=== PATIENT | male | born 1980 | race American Indian/Alaskan Native ===

== ENCOUNTER 2016-10-19 21:25 | Emergency (ER) | payer SELFPAY ==
--- NOTE | 2016-10-20 01:35 | XRay Report ---
FINAL REPORT PROCEDURE: XR FOOT 3+V LT TECHNIQUE: LEFT foot radiographs, AP, lateral, and oblique views. CPT 49812 HISTORY: foreign body COMPARISON: No prior studies are available for comparison. FINDINGS: Fracture (s) and/or Dislocation(s): None . Alignment: Normal . Joint space(s): Normal . Soft tissues: Normal . Bone mineralization: Normal . Foreign bodies: None . Calcaneal spurring: None . IMPRESSION: Normal Examination .
[2016-10-20] MEDS ORDERED: BOOSTRIX IM ONE (02:36)
--- NOTE | 2016-10-20 02:43 | Emergency Department Report ---
ED Lower Extremity HPI - General Chief Complaint: Extremity Injury, Lower Stated Complaint: LEFT FOOT INJURY Time Seen by Provider: 10/20/16 02:22 Source: patient Mode of arrival: Ambulatory Limitations: No Limitations - History of Present Illness Initial Comments: This is a 35-year-old male nontoxic, well nourished in appearance, no acute signs of distress presents to the ED complaining of left foot pain status post puncture wound. Patient stated yesterday around 1400 patient stepped in a rusted nail. Patient stated he was wearing shoes when this occurred. Patient denies any numbness, tingling, decreased range of motion, pus, drainage, fever, chills, nausea or vomiting. Patient denies any allergy or past medical history. Patient stated does not know his last shot of tetanus. MD Complaint: foot injury -: Gradual, days(s) (1) Injury: Foot: Left Type of Injury: puncture wound Place: street/outdoors Severity: mild Severity scale (0 -10): 6 Improves With: nothing Worsens With: nothing Associated Symptoms: ambulatory. denies: snap/pop sensation, swelling, numbness , tingling, unable to bear weight, able to partially bear weight - Related Data Previous Rx's Medication Instructions Recorded Last Taken Type Ibuprofen [Motrin 600 MG tab] 600 mg PO Q8H PRN #30 tablet 10/20/16 Unknown Rx Levofloxacin [Levaquin TAB] 750 mg PO QDAY #7 tablet 10/20/16 Unknown Rx Allergies Allergy/AdvReac Type Severity Reaction Status Date / Time No Known Allergies Allergy Unverified 10/19/16 21:32 ED Review of Systems ROS: Stated complaint: LEFT FOOT INJURY Other details as noted in HPI Constitutional: denies: chills, fever Eyes: denies: eye pain, eye discharge, vision change ENT: denies: ear pain, throat pain Respiratory: denies: cough, shortness of breath, wheezing Cardiovascular: denies: chest pain, palpitations Endocrine: no symptoms reported Gastrointestinal: denies: abdominal pain, nausea, diarrhea Genitourinary: denies: urgency, dysuria Musculoskeletal: denies: back pain, joint swelling, arthralgia Skin: denies: rash, lesions Neurological: denies: headache, weakness, paresthesias Psychiatric: denies: anxiety, depression Hematological/Lymphatic: denies: easy bleeding, easy bruising ED Past Medical Hx - Past Medical History Previous Medical History?: No - Surgical History Past Surgical History?: No - Social History Smoking Status: Current Every Day Smoker - Medications Home Medications: Home Medications Medication Instructions Recorded Confirmed Last Taken Type Ibuprofen [Motrin 600 MG tab] 600 mg PO Q8H PRN #30 tablet 10/20/16 Unknown Rx Levofloxacin [Levaquin TAB] 750 mg PO QDAY #7 tablet 10/20/16 Unknown Rx ED Physical Exam - General Limitations: No Limitations General appearance: alert, in no apparent distress - Head Head exam: Present: atraumatic, normocephalic, normal inspection - Eye Eye exam: Present: normal appearance, PERRL, EOMI. Absent: scleral icterus, conjunctival injection, nystagmus, periorbital swelling, periorbital tenderness Pupils: Present: normal accommodation - ENT ENT exam: Present: normal exam, normal orophraynx, mucous membranes moist, TM's normal bilaterally, normal external ear exam - Neck Neck exam: Present: normal inspection, full ROM. Absent: tenderness, meningismus, lymphadenopathy, thyromegaly - Respiratory Respiratory exam: Present: normal lung sounds bilaterally. Absent: respiratory distress, wheezes, rales, rhonchi, stridor, chest wall tenderness, accessory muscle use, decreased breath sounds, prolonged expiratory - Cardiovascular Cardiovascular Exam: Present: regular rate, normal rhythm, normal heart sounds. Absent: systolic murmur, diastolic murmur, rubs, gallop - GI/Abdominal GI/Abdominal exam: Present: soft, normal bowel sounds. Absent: distended, tenderness, guarding, rebound, rigid, diminished bowel sounds - Rectal Rectal exam: Present: deferred - Extremities Exam Extremities exam: Present: normal inspection, full ROM, normal capillary refill. Absent: tenderness, pedal edema, joint swelling, calf tenderness - Expanded Lower Extremity Exam Left Hip exam: Present: normal inspection, full ROM Upper Leg exam: Present: normal inspection, full ROM Knee exam: Present: normal inspection, full ROM Lower Leg exam: Present: normal inspection, full ROM Ankle exam: Present: normal inspection, full ROM Foot/Toe exam: Present: normal inspection, full ROM, tenderness, puncture wound. Absent: swelling, abrasion, laceration, ecchymosis, deformity, crepidus , dislocation, erythema, amputation, foreign body, calcaneal tenderness, tenderness at base of 5th metatarsal, nail avulsion, subungual hematoma Neuro vascular tendon exam: Present: no vascular compromise. Absent: pulse deficit, abnormal cap refill, motor deficit, sensory deficit, tendon deficit, extremity cold to touch, pallor, abnormal 2-point discrimination, decreased fine /light touch, foot drop, peroneal nerve deficit, significant pain with passive ROM of distal joint Gait: Positive: observed and normal 1 - Puncture wound - Back Exam Back exam: Present: normal inspection, full ROM. Absent: tenderness, CVA tenderness (R), CVA tenderness (L), muscle spasm, paraspinal tenderness, vertebral tenderness, rash noted - Neurological Exam Neurological exam: Present: alert, oriented X3, CN II-XII intact, normal gait, reflexes normal - Psychiatric Psychiatric exam: Present: normal affect, normal mood - Skin Skin exam: Present: warm, dry, intact, normal color. Absent: rash ED Course Vital Signs 10/19/16 21:33 Temperature 98.5 F Pulse Rate 102 H Respiratory 16 Rate Blood Pressure 111/75 O2 Sat by Pulse 98 Oximetry - Reevaluation(s) Reevaluation #1: 10/20/16 02:47 Patient is speaking full sentences with no signs of distress noted. ED Lower Extremity MDM - Radiology Data Radiology results: report reviewed interpreted by me: Dr. Thomas Normal examination. No fracture or foreign body noted. Critical care attestation.: If time is entered above; I have spent that time in minutes in the direct care of this critically ill patient, excluding procedure time. ED Disposition Clinical Impression: Puncture wound Disposition: DC-01 TO HOME OR SELFCARE Is pt being admited?: No Does the pt Need Aspirin: No Condition: Stable Instructions: Puncture Wound (ED), Levofloxacin (By mouth), Ibuprofen (By mouth ) Additional Instructions: Follow-up with a primary care doctor in 3-5 days or if symptoms worsen or continue return to emergency room as soon as possible. Prescriptions: Ibuprofen [Motrin 600 MG tab] 600 mg PO Q8H PRN #30 tablet PRN Reason: Pain Levofloxacin [Levaquin TAB] 750 mg PO QDAY #7 tablet Referrals: PRIMARY CARE, [Primary Care Provider] - 3-5 Days EMILE BERGER MD [Staff Physician] - 3-5 Days [facility] [Outside] - 3-[address] [facility] [place] [Outside] - 3-5 Days
[2016-10-20 03:55] VITALS: BP 110/70
== END 2016-10-20 03:54 | disposition home or self-care (01) ==
LOC: ED 21:25
DX: S91.332A Puncture wound without foreign body, left foot, initial encounter (principal); F17.200 Nicotine dependence, unspecified, uncomplicated; X58.XXXA Exposure to other specified factors, initial encounter; Y93.9 Activity, unspecified; Y92.9 Unspecified place or not applicable; Y99.9 Unspecified external cause status
CPT/HCPCS: 90471; 90715

== ENCOUNTER 2016-10-27 21:50 | Emergency (ER) | payer SELFPAY ==
[2016-10-27 23:28] LABS: Basophils % (Auto) 0.8 % (0.0-1.8); Eosinophils % (Auto) 2.4 % (0.0-4.3); Hematocrit 42.9 % (35.5-45.6); Hemoglobin 14.4 gm/dl (11.8-15.2); Mean Corpuscular HGB Conc 34 % (32-34); Mean Corpuscular Hemoglobin 33 pg (28-32); Mean Corpuscular Volume 99 fl (84-94); Platelet Count 228 K/mm3 (140-440); Red Blood Count 4.36 M/mm3 (3.65-5.03); Red Cell Distribution Width 13.9 % (13.2-15.2)
[2016-10-27 23:40] LABS: Alanine Aminotransferase 14 units/L (7-56); Albumin 4.4 g/dL (3.9-5); Albumin/Globulin Ratio 1.2 %; Alkaline Phosphatase 75 units/L (35-129); Anion Gap 20 mmol/L; BUN/Creatinine Ratio 16.66; Blood Urea Nitrogen 10 mg/dL (9-20); Calcium 8.5 mg/dL (8.4-10.2); Carbon Dioxide 21 mmol/L (22-30); Chloride 101.5 mmol/L (98-107); Glucose 88 mg/dL (75-100); Lipase 32 units/L (13-60); Potassium 3.8 mmol/L (3.6-5.0); Sodium 139 mmol/L (137-145)
[2016-10-28 02:34] LABS: Bilirubin,Urine NEG (Negative); Blood,Urine NEG (Negative); Ketones,Urine NEG (Negative); Leukocyte Esterase,Urine NEG (Negative); Mucus,Urine FEW /HPF; Nitrite,Urine NEG (Negative); Urobilinogen,Urine < 2.0 mg/dL (<2.0)
[2016-10-28] MEDS ORDERED: NACL 0.9% 1000 ML 1,000 ML IV ONE (03:07)
[2016-10-28] MEDS ORDERED: ZOFRAN IV ONE (03:08)
[2016-10-28] MEDS ORDERED: LIDOCAINE VISCOUS 2% PO ONE (03:08)
[2016-10-28] MEDS ORDERED: ALUM-MAG HYDROX-SIMETH 200-200-20MG/5ML PO ONE (03:08)
[2016-10-28] MEDS ORDERED: MORPHINE IV ONE (03:08)
[2016-10-28] MEDS ORDERED: PROTONIX IV ONE (03:08)
--- NOTE | 2016-10-28 03:12 | Emergency Department Report ---
HPI - General Chief Complaint: Abdominal Pain Time Seen by Provider: 10/28/16 03:07 - HPI HPI: The patient is a 35-year-old male presents for evaluation of abdominal pain. The patient reports abdominal pain for the past one day, upper abdominal in location, 10/10 in severity, constant since onset, burning in quality, exacerbated with eating. The patient denies fever, chills, night sweats, diarrhea, blood in the stool, dark tarry stool, dysuria, hematuria, flank pain, genital discharge, inability to pass flatus. ED Past Medical Hx - Past Medical History Previous Medical History?: No - Surgical History Past Surgical History?: No - Social History Smoking Status: Current Every Day Smoker Substance Use Type: None - Medications Home Medications: Home Medications Medication Instructions Recorded Confirmed Last Taken Type Ibuprofen [Motrin 600 MG tab] 600 mg PO Q8H PRN #30 tablet 10/20/16 Unknown Rx Levofloxacin [Levaquin TAB] 750 mg PO QDAY #7 tablet 10/20/16 Unknown Rx Omeprazole Magnesium [PriLOSEC Otc] 20 mg PO QDAY #14 tablet. 10/28/16 Unknown Rx traMADol [Ultram 50 MG tab] 50 mg PO Q6HR PRN #15 tablet 10/28/16 Unknown Rx ED Review of Systems ROS: Stated complaint: AB PAIN Other details as noted in HPI Constitutional: denies: fever ENT: denies: throat or neck pain Respiratory: denies: cough, shortness of breath Cardiovascular: denies: chest pain Endocrine: denies unexplained weight loss or gain Gastrointestinal: reports abdominal pain, nausea Genitourinary: denies: dysuria Musculoskeletal: denies: leg swelling Skin: denies: rash Neurological: denies: headache Hematological/Lymphatic: denies: easy bleeding or easy bruising Psych: denies sadness or hopelessness Physical Exam - Physical Exam Vital Signs: Vital Signs 10/27/16 10/28/16 22:50 02:05 Temperature 98.3 F 98.3 F Pulse Rate 103 H 87 Respiratory 16 16 Rate Blood Pressure 102/70 Blood Pressure 119/85 [Right] O2 Sat by Pulse 95 98 Oximetry Physical Exam: General: well-nourished, well-developed, no acute distress Head: Normocephalic, atraumatic Eyes: normal sclera ENT: Mucous membranes are pale and dry Neck: No neck stiffness, no cervical adenopathy Respiratory: Breath sounds equal bilaterally, no wheezing, rales, or rhonchi Cardio: S1 and S2 present, no murmurs, rubs, gallops, capillary refill is delayed Abdomen: Normoactive bowel sounds, soft abdomen, left upper quadrant and epigastric tenderness to palpation present, no rigidity, no guarding or rebound tenderness Chest WALL/Back: No tenderness to palpation of the chest wall, no CVA tenderness with percussion Musc: No pitting edema Skin: No rash Neuro: no facial drooping, normal speech Psych: Normal affect ED Course Vital Signs 10/27/16 10/28/16 22:50 02:05 Temperature 98.3 F 98.3 F Pulse Rate 103 H 87 Respiratory 16 16 Rate Blood Pressure 102/70 Blood Pressure 119/85 [Right] O2 Sat by Pulse 95 98 Oximetry ED Medical Decision Making - Lab Data Result diagrams: 10/27/16 22:57 10/27/16 22:57 - Medical Decision Making The patient was seen and examined by myself. The patient is placed on a cardiac rehabilitation specialist and continuous pulse ox. On initial evaluation, the patient was found to be in no distress. Evaluation orders are placed. IV access is established and the patient is given 1 L normal saline fluid bolus and Zofran for nausea, and IV analgesic for pain Lab results were non-concerning including WBC, hemoglobin, hematocrit, electrolytes, renal function, LFTs, lipase, and urinalysis. The patient was reevaluated and reported that their symptoms were markedly improved. The patient is stable for discharge with outpatient follow-up. The patient is given follow-up and return instructions. The patient expressed understanding and agreed with the plan. The patient is discharged in stable condition. Critical care attestation.: If time is entered above; I have spent that time in minutes in the direct care of this critically ill patient, excluding procedure time. ED Disposition Clinical Impression: Acute LUQ pain, Dehydration, mild Disposition: DC-01 TO HOME OR SELFCARE Is pt being admited?: No Does the pt Need Aspirin: No Condition: Stable Instructions: Abdominal Pain (ED), Gastritis (ED), Peptic Ulcer (ED) Referrals: PRIMARY CARE, [Primary Care Provider] - 3-5 Days Time of Disposition: 03:09
[2016-10-28 05:19] VITALS: BP 127/92
== END 2016-10-28 05:18 | disposition home or self-care (01) ==
LOC: ED 21:50
DX: R10.32 Left lower quadrant pain (principal); E86.0 Dehydration; F17.200 Nicotine dependence, unspecified, uncomplicated
CPT/HCPCS: 36415; 80053; 81001; 83690; 85025; 96361; 96374; 96375; 99284; C9113; J2270; J2405; J7030

== ENCOUNTER 2016-11-30 00:16 | Emergency (ER) | payer SELFPAY ==
[2016-11-30 00:51] VITALS: BP 133/96
[2016-11-30 01:25] LABS: Basophils % (Auto) 1.3 % (0.0-1.8); Eosinophils % (Auto) 2.8 % (0.0-4.3); Hemoglobin 14.4 gm/dl (11.8-15.2); Mean Corpuscular HGB Conc 34 % (32-34); Mean Corpuscular Hemoglobin 34 pg (28-32); Mean Corpuscular Volume 99 fl (84-94); Platelet Count 259 K/mm3 (140-440); Red Blood Count 4.26 M/mm3 (3.65-5.03); White Blood Count 6.1 K/mm3 (4.5-11.0)
[2016-11-30 01:40] LABS: Alanine Aminotransferase 12 units/L (7-56); Albumin 4.2 g/dL (3.9-5); Albumin/Globulin Ratio 1.1 %; Alkaline Phosphatase 76 units/L (35-129); Anion Gap 19 mmol/L; BUN/Creatinine Ratio 10; Blood Urea Nitrogen 6 mg/dL (9-20); Carbon Dioxide 24 mmol/L (22-30); Chloride 99.7 mmol/L (98-107); Glucose 84 mg/dL (75-100); Lipase 21 units/L (13-60); Sodium 139 mmol/L (137-145); Total Protein 8.1 g/dL (6.3-8.2)
== END 2016-11-30 00:47 | disposition left against medical advice (07) ==
LOC: ED 00:16
DX: R07.9 Chest pain, unspecified (principal); Z53.21 Procedure and treatment not carried out due to patient leaving prior to being seen by health care provider
CPT/HCPCS: 36415; 80053; 83690; 85025

== ENCOUNTER 2018-12-10 01:36 | Emergency (ER) | payer SELFPAY ==
[2018-12-10] MEDS ORDERED: ONDANSETRON 4 MG ODT TAB ONE (02:00)
--- NOTE | 2018-12-10 02:09 | Emergency Department Report ---
ED Abdominal Pain HPI - General Chief Complaint: Abdominal Pain Stated Complaint: ABD PAIN Time Seen by Provider: 12/10/18 01:46 Source: patient Mode of arrival: Ambulatory Limitations: No Limitations - History of Present Illness Initial Comments: This is a 38-year-old -[place] male who presents to the emergency room with right sided abdominal pain since this morning. Patient reports pain as sharp and nonradiating pain. States he ate Telugu food around 10:00 this morning. Reports nausea without vomiting. Denies diarrhea, urinary frequency, urgency, dysuria, penile discharge, or chest pain. MD Complaint: abdominal pain -: This morning Location: RUQ, RLQ Radiation: none Migration to: no migration Severity scale (0 -10): 6 Quality: sharp Consistency: intermittent Improves With: nothing Context: possible food poisoning Associated Symptoms: nausea. denies: vomiting, diarrhea, fever, chills, constipation, dysuria, hematemesis, hematochezia, melena, hematuria, anorexia, syncope - Related Data Previous Rx's Medication Instructions Recorded Last Taken Type Ibuprofen [Motrin 600 MG tab] 600 mg PO Q8H PRN #30 tablet 10/20/16 Unknown Rx levoFLOXacin [Levaquin TAB] 750 mg PO QDAY #7 tablet 10/20/16 Unknown Rx Omeprazole Magnesium [PriLOSEC Otc] 20 mg PO QDAY #14 tablet. 10/28/16 Unknown Rx traMADol [Ultram 50 MG tab] 50 mg PO Q6HR PRN #15 tablet 10/28/16 Unknown Rx Ondansetron [Zofran Odt] 4 mg PO Q8HR PRN #15 tab.rapdis 12/10/18 Unknown Rx Allergies Allergy/AdvReac Type Severity Reaction Status Date / Time No Known Allergies Allergy Verified 10/27/16 22:50 ED Review of Systems ROS: Stated complaint: ABD PAIN Other details as noted in HPI Constitutional: denies: chills, fever Respiratory: denies: cough, shortness of breath, wheezing Cardiovascular: denies: chest pain, palpitations Gastrointestinal: abdominal pain, nausea. denies: vomiting, diarrhea Genitourinary: denies: urgency, dysuria Musculoskeletal: denies: back pain, joint swelling, arthralgia Skin: denies: rash, lesions Neurological: denies: headache, weakness, paresthesias Psychiatric: denies: anxiety, depression ED Past Medical Hx - Past Medical History Previous Medical History?: No - Surgical History Past Surgical History?: No - Social History Smoking Status: Current Every Day Smoker Substance Use Type: None - Medications Home Medications: Home Medications Medication Instructions Recorded Confirmed Last Taken Type Ibuprofen [Motrin 600 MG tab] 600 mg PO Q8H PRN #30 tablet 10/20/16 Unknown Rx levoFLOXacin [Levaquin TAB] 750 mg PO QDAY #7 tablet 10/20/16 Unknown Rx Omeprazole Magnesium [PriLOSEC Otc] 20 mg PO QDAY #14 tablet.dr 10/28/16 Unknown Rx traMADol [Ultram 50 MG tab] 50 mg PO Q6HR PRN #15 tablet 10/28/16 Unknown Rx Ondansetron [Zofran Odt] 4 mg PO Q8HR PRN #15 tab.rapdis 12/10/18 Unknown Rx ED Physical Exam - General Limitations: No Limitations General appearance: alert, in no apparent distress - Respiratory Respiratory exam: Present: normal lung sounds bilaterally. Absent: respiratory distress - Cardiovascular Cardiovascular Exam: Present: regular rate, normal rhythm. Absent: systolic murmur, diastolic murmur, rubs, gallop - GI/Abdominal GI/Abdominal exam: Present: soft, normal bowel sounds. Absent: distended, guarding, rebound, rigid, organomegaly - Back Exam Back exam: Absent: CVA tenderness (R), CVA tenderness (L), muscle spasm, paraspinal tenderness, vertebral tenderness, rash noted - Neurological Exam Neurological exam: Present: alert, oriented X3, normal gait - Psychiatric Psychiatric exam: Present: normal affect, normal mood - Skin Skin exam: Present: warm, dry, intact, normal color. Absent: rash ED Course Vital Signs 12/10/18 01:39 Temperature 97.8 F Pulse Rate 105 H Respiratory 18 Rate Blood Pressure 144/99 O2 Sat by Pulse 99 Oximetry ED Medical Decision Making - Lab Data Result diagrams: 12/10/18 01:52 12/10/18 01:52 Lab Results 12/10/18 12/10/18 Range/Units 01:52 01:52 WBC 7.1 (4.5-11.0) K/mm3 RBC 4.35 (3.65-5.03) M/mm3 Hgb 14.6 (11.8-15.2) gm/dl Hct 42.4 (35.5-45.6) % MCV 98 H (84-94) fl MCH 34 H (28-32) pg MCHC 34 (32-34) % RDW 13.6 (13.2-15.2) % Plt Count 222 (140-440) K/mm3 Lymph % (Auto) 36.9 H (13.4-35.0) % [place] % (Auto) 13.4 H (0.0-7.3) % Eos % (Auto) 2.5 (0.0-4.3) % Baso % (Auto) 1.1 (0.0-1.8) % Lymph # 2.6 (1.2-5.4) K/mm3 [place] # 1.0 H (0.0-0.8) K/mm3 Eos # 0.2 (0.0-0.4) K/mm3 Baso # 0.1 (0.0-0.1) K/mm3 Seg Neutrophils % 46.1 (40.0-70.0) % Seg Neutrophils # 3.3 (1.8-7.7) K/mm3 Sodium 139 (137-145) mmol/L Potassium 4.2 (3.6-5.0) mmol/L Chloride 99.8 (98-107) mmol/L Carbon Dioxide 24 (22-30) mmol/L Anion Gap 19 mmol/L BUN 6 L (9-20) mg/dL Creatinine 0.7 L (0.8-1.5) mg/dL Estimated GFR > 60 ml/min BUN/Creatinine Ratio 9 % Glucose 81 (75-100) mg/dL Calcium 9.1 (8.4-10.2) mg/dL Total Bilirubin 1.00 (0.1-1.2) mg/dL AST 31 (5-40) units/L ALT 19 (7-56) units/L Alkaline Phosphatase 95 (35-129) units/L Total Protein 8.4 H (6.3-8.2) g/dL Albumin 4.6 (3.9-5) g/dL Albumin/Globulin Ratio 1.2 % Lipase 28 (13-60) units/L - Radiology Data Radiology results: report reviewed CT ABDOMEN AND PELVIS WITH CONTRAST INDICATION / CLINICAL INFORMATION: right sided abdominal pain. TECHNIQUE: Axial CT images were obtained through the abdomen and pelvis after 100 mL Omnipaque [address] scans at this location are performed using CT dose reduction for ALARA by means of automated exposure control. COMPARISON: None available. FINDINGS: LOWER CHEST: Rounded density in the right inferior hilar region with right lower lobe density with cystic areas containing air-fluid levels. LIVER: Fatty infiltration. GALLBLADDER: No significant abnormality. BILE DUCTS: No significant abnormality. PANCREAS: No significant abnormality. SPLEEN: No significant abnormality. ADRENALS: No significant abnormality. RIGHT KIDNEY and URETER: No significant abnormality. LEFT KIDNEY and URETER: No significant abnormality. STOMACH and SMALL BOWEL: Fluid-filled, nondilated small bowel. COLON: No significant abnormality. APPENDIX: No significant abnormality. PERITONEUM: No free fluid. No free air. No fluid collection. LYMPH NODES: No significant adenopathy. AORTA and ARTERIES: No significant abnormality. IVC and VEINS: No significant abnormality. URINARY BLADDER: No significant abnormality. REPRODUCTIVE ORGANS: No significant abnormality. ADDITIONAL FINDINGS: None. SKELETAL SYSTEM: No significant abnormality. IMPRESSION: 1. No inflammatory process or bowel obstruction in the abdomen or pelvis. Normal appendix. 2. Hepatic steatosis. 3. Right lower lobe density with cystic areas containing air-fluid levels. This could represent intralobar pulmonary sequestration. Follow-up dedicated chest CT is recommended. CT CHEST WITH CONTRAST INDICATION / CLINICAL INFORMATION: r/o intralobar pulmonary sequestration. TECHNIQUE: Axial CT images were obtained through the chest after 100 mL Omnipaque [address] scans at this location are performed using CT dose reduction for ALARA by means of automated exposure control. COMPARISON: CT abdomen from same date. FINDINGS: HEART: No significant abnormality. THORACIC AORTA: No significant abnormality. MEDIASTINUM and KIERAN: There is a rounded soft tissue density at the inferior right hilum measuring 3.2 x 3.8 x 3.6 cm. This lesion has significant mass effect on the right lower lobe bronchus. LUNGS: Dilated cystic airspaces with air-fluid levels in the medial right lung base possibly representing intrapulmonary sequestration. Lungs are otherwise clear. PLEURA: No significant pleural effusion. No pneumothorax. ADDITIONAL FINDINGS: None. UPPER ABDOMEN: No acute abnormality. SKELETAL SYSTEM: No significant abnormality. IMPRESSION: 1. Rounded soft tissue density at the inferior right hilum with mass effect on the right lower lobe bronchus. 2. Possible right lower lobe intrapulmonary sequestration. Follow-up pulmonary consultation with possible bronchoscopy may be helpful. - Medical Decision Making This is a 38 y.o. male that presents with vomiting and and abdominal pain since this morning. Patient is stable and was examined by me. Vitals stable. Obtained CMP, CBC, & UA. All unremarkable. Given zofran odt 4 mg po once in ER. CT of abdomen findings of no inflammatory process or bowel obstruction in the abdomen or pelvis. Normal appendix. Hepatic steatosis. Right lower lobe density with cystic areas containing air-fluid levels. This could represent intralobar pulmonary sequestration. Follow-up dedicated chest CT is recommended. Obtained CT of chest with findings of Rounded soft tissue density at the inferior right hilum with mass effect on the right lower lobe bronchus. Possible right lower lobe intrapulmonary sequestration. Follow-up pulmonary consultation with possible bronchoscopy may be helpful. Referral to pulmonology for follow- up. Start zofran for nausea associated with gastroenteritis. Discussed plan with patient and agreed to plan. No further questions noted by the patient. Discharged home in stable condition. Follow up with PCP in 2-3 days. Critical care attestation.: If time is entered above; I have spent that time in minutes in the direct care of this critically ill patient, excluding procedure time. ED Disposition Clinical Impression: Right sided abdominal pain, Gastroenteritis Disposition: - TO HOME OR SELFCARE Is pt being admited?: No Condition: Stable Instructions: Gastroenteritis (ED) Additional Instructions: Follow-up with the backup sawyer regarding solid area lower lobe of right lung. Return to the emergency room a few experience shortness of breath, difficulty breathing with movement, chest pain, or palpitations. Prescriptions: Ondansetron [Zofran Odt] 4 mg PO Q8HR PRN #15 tab.rapdis PRN Reason: Nausea And Vomiting Referrals: FAREED MORROW MD [Staff Physician] - 3-5 Days [facility] [Provider Group] - 3-5 Days [facility] [Outside] - 3-5 Days Forms: Work/School Release Form(ED) Time of Disposition: 05:17
[2018-12-10] MEDS ORDERED: ONDANSETRON 4 MG ODT TAB PO ONE (02:25)
[2018-12-10] MEDS ORDERED: SODIUM CHLORIDE 0.9% 1000 ML 1,000 ML IV ONE (02:25)
[2018-12-10 02:37] LABS: Basophils # (Auto) 0.1 K/mm3 (0.0-0.1); Basophils % (Auto) 1.1 % (0.0-1.8); Eosinophils # (Auto) 0.2 K/mm3 (0.0-0.4); Eosinophils % (Auto) 2.5 % (0.0-4.3); Hematocrit 42.4 % (35.5-45.6); Hemoglobin 14.6 gm/dl (11.8-15.2); Lymphocytes # (Auto) 2.6 K/mm3 (1.2-5.4); Lymphocytes % (Auto) 36.9 % (13.4-35.0); Mean Corpuscular HGB Conc 34 % (32-34); Mean Corpuscular Volume 98 fl (84-94); Monocytes % (Auto) 13.4 % (0.0-7.3); Platelet Count 222 K/mm3 (140-440); Red Blood Count 4.35 M/mm3 (3.65-5.03); Red Cell Distribution Width 13.6 % (13.2-15.2)
[2018-12-10 02:54] LABS: Alanine Aminotransferase 19 units/L (7-56); Albumin 4.6 g/dL (3.9-5); BUN/Creatinine Ratio 9; Blood Urea Nitrogen 6 mg/dL (9-20); Calcium 9.1 mg/dL (8.4-10.2); Hemolysis Index 11
--- NOTE | 2018-12-10 03:36 | Cat Scan Report ---
CT ABDOMEN AND PELVIS WITH CONTRAST INDICATION / CLINICAL INFORMATION: right sided abdominal pain. TECHNIQUE: Axial CT images were obtained through the abdomen and pelvis after 100 mL Omnipaque [address] scans at this location are performed using CT dose reduction for ALARA by means of automated exposure control. COMPARISON: None available. FINDINGS: LOWER CHEST: Rounded density in the right inferior hilar region with right lower lobe density with cy stic areas containing air-fluid levels. LIVER: Fatty infiltration. GALLBLADDER: No significant abnormality. BILE DUCTS: No significant abnormality. PANCREAS: No significant abnormality. SPLEEN: No significant abnormality. ADRENALS: No significant abnormality. RIGHT KIDNEY and URETER: No significant abnormality. LEFT KIDNEY and URETER: No significant abnormality. STOMACH and SMALL BOWEL: Fluid-filled, nondilated small bowel. COLON: No significant abnormality. APPENDIX: No significant abnormality. PERITONEUM: No free fluid. No free air. No fluid collection. LYMPH NODES: No significant adenopathy. AORTA and ARTERIES: No significant abnormality. IVC and VEINS: No significant abnormality. URINARY BLADDER: No significant abnormality. REPRODUCTIVE ORGANS: No significant abnormality. ADDITIONAL FINDINGS: None. SKELETAL SYSTEM: No significant abnormality. IMPRESSION: 1. No inflammatory process or bowel obstruction in the abdomen or pelvis. Normal appendix. 2. Hepatic steatosis. 3. Right lower lobe density with cystic areas containing air-fluid levels. This could represent intra lobar pulmonary sequestration. Follow-up dedicated chest CT is recommended. Signer Name: Cathleen Kumar MD Signed: 12/10/2018 3:32 AM Workstation Name: [id number]
--- NOTE | 2018-12-10 04:53 | Cat Scan Report ---
CT CHEST WITH CONTRAST INDICATION / CLINICAL INFORMATION: r/o intralobar pulmonary sequestration. TECHNIQUE: Axial CT images were obtained through the chest after 100 mL Omnipaque [address] scans at this location are performed using CT dose reduction for ALARA by means of automated exposure contr ol. COMPARISON: CT abdomen from same date. FINDINGS: HEART: No significant abnormality. THORACIC AORTA: No significant abnormality. MEDIASTINUM and KIERAN: There is a rounded soft tissue density at the inferior right hilum measuring 3. 2 x 3.8 x 3.6 cm. This lesion has significant mass effect on the right lower lobe bronchus. LUNGS: Dilated cystic airspaces with air-fluid levels in the medial right lung base possibly represen ting intrapulmonary sequestration. Lungs are otherwise clear. PLEURA: No significant pleural effusion. No pneumothorax. ADDITIONAL FINDINGS: None. UPPER ABDOMEN: No acute abnormality. SKELETAL SYSTEM: No significant abnormality. IMPRESSION: 1. Rounded soft tissue density at the inferior right hilum with mass effect on the right lower lobe b ronchus. 2. Possible right lower lobe intrapulmonary sequestration. Follow-up pulmonary consultation with poss ible bronchoscopy may be helpful. Signer Name: Cathleen Kumar MD Signed: 12/10/2018 4:49 AM Workstation Name: [id number]
[2018-12-10 05:36] VITALS: BP 141/99
== END 2018-12-10 05:34 | disposition home or self-care (01) ==
LOC: ED 01:36
DX: K52.9 Noninfective gastroenteritis and colitis, unspecified (principal); F17.200 Nicotine dependence, unspecified, uncomplicated; Z79.899 Other long term (current) drug therapy
CPT/HCPCS: 36415; 71260; 74177; 80053; 83690; 85025; 96360; 99284; J7030; Q9967; Q0162

== ENCOUNTER 2018-12-11 23:29 | Emergency (ER) | payer SELFPAY ==
[2018-12-11 23:47] VITALS: BP 127/86
[2018-12-12 00:11] LABS: Basophils # (Auto) 0.1 K/mm3 (0.0-0.1); Basophils % (Auto) 0.9 % (0.0-1.8); Eosinophils # (Auto) 0.2 K/mm3 (0.0-0.4); Eosinophils % (Auto) 2.6 % (0.0-4.3); Hematocrit 43.8 % (35.5-45.6); Lymphocytes # (Auto) 2.4 K/mm3 (1.2-5.4); Lymphocytes % (Auto) 29.8 % (13.4-35.0); Mean Corpuscular HGB Conc 34 % (32-34); Mean Corpuscular Volume 98 fl (84-94); Monocytes % (Auto) 12.8 % (0.0-7.3); Platelet Count 230 K/mm3 (140-440); Red Blood Count 4.49 M/mm3 (3.65-5.03); Red Cell Distribution Width 13.2 % (13.2-15.2)
[2018-12-12 00:35] LABS: Alanine Aminotransferase 17 units/L (7-56); Albumin 4.5 g/dL (3.9-5); BUN/Creatinine Ratio 9; Blood Urea Nitrogen 6 mg/dL (9-20); Hemolysis Index 13
== END 2018-12-12 01:30 | disposition left against medical advice (07) ==
LOC: ED 23:29
DX: R10.9 Unspecified abdominal pain (principal); Z53.21 Procedure and treatment not carried out due to patient leaving prior to being seen by health care provider
CPT/HCPCS: 36415; 80053; 83690; 85025

== ENCOUNTER 2020-02-04 07:26 | Emergency (ER) | payer SELFPAY ==
[2020-02-04 08:12] VITALS: BP 141/109
[2020-02-04] MEDS ORDERED: PANTOPRAZOLE 40 MG INJ IV ONE (08:12)
--- NOTE | 2020-02-04 08:14 | Event Note ---
ED Screening Note Date of service: 02/04/20 Time: 08:13 ED Screening Note: Patient complains of sudden onset of epigastric pain and hematemesis Denies prior medical history Denies abdominal surgeries Admits to regular heavy alcohol intake This initial assessment/diagnostic orders/clinical plan/treatment(s) is/are subject to change based on patients health status, clinical progression and re- assessment by fellow clinical providers in the ED. Further treatment and workup at subsequent clinical providers discretion. Patient/guardian urged not to elope from the ED as their condition may be serious if not clinically assessed and managed. Initial orders include: ct labs npo
[2020-02-04 09:41] LABS: Basophils % (Auto) 0.7 % (0.0-1.8); Eosinophils % (Auto) 0.6 % (0.0-4.3); Hematocrit 44.7 % (35.5-45.6); Hemoglobin 15.7 gm/dl (11.8-15.2); Lymphocytes # (Auto) 1.5 K/mm3 (1.2-5.4); Lymphocytes % (Auto) 25.5 % (13.4-35.0); Mean Corpuscular HGB Conc 35 % (32-34); Mean Corpuscular Volume 96 fl (84-94); Monocytes # (Auto) 0.9 K/mm3 (0.0-0.8); Monocytes % (Auto) 14.3 % (0.0-7.3); Platelet Count 179 K/mm3 (140-440); Red Blood Count 4.64 M/mm3 (3.65-5.03); Red Cell Distribution Width 13.1 % (13.2-15.2)
[2020-02-04 09:48] LABS: INR 0.94 (0.87-1.13)
[2020-02-04 09:58] LABS: Alanine Aminotransferase 126 units/L (7-56); Albumin 4.7 g/dL (3.9-5); Blood Urea Nitrogen 5 mg/dL (9-20); Calcium 9.1 mg/dL (8.4-10.2); Hemolysis Index 4
[2020-02-04 09:59] LABS: BUN/Creatinine Ratio 7
== END 2020-02-04 09:00 | disposition left against medical advice (07) ==
LOC: ED 07:26
DX: R10.9 Unspecified abdominal pain (principal); Z53.21 Procedure and treatment not carried out due to patient leaving prior to being seen by health care provider
CPT/HCPCS: 36415; 80053; 83690; 85025; 85610; 85730

== ENCOUNTER 2021-04-21 20:49 | Inpatient (IN) | payer SELFPAY ==
[2021-04-21 22:02] LABS: Basophils # (Auto) 0.1 K/mm3 (0.0-0.1); Basophils % (Auto) 1.2 % (0.0-1.8); Eosinophils # (Auto) 0.1 K/mm3 (0.0-0.4); Eosinophils % (Auto) 1.5 % (0.0-4.3); Hematocrit 42.7 % (35.5-45.6); Hemoglobin 14.5 gm/dl (11.8-15.2); Lymphocytes # (Auto) 2.1 K/mm3 (1.2-5.4); Lymphocytes % (Auto) 24.6 % (13.4-35.0); Mean Corpuscular HGB Conc 34 % (32-34); Mean Corpuscular Volume 99 fl (84-94); Monocytes # (Auto) 0.9 K/mm3 (0.0-0.8); Monocytes % (Auto) 10.8 % (0.0-7.3); Platelet Count 167 K/mm3 (140-440); Red Blood Count 4.33 M/mm3 (3.65-5.03); Red Cell Distribution Width 14.1 % (13.2-15.2)
--- NOTE | 2021-04-21 22:03 | XRay Report ---
CHEST 2 VIEWS INDICATION / CLINICAL INFORMATION: chest pain. COMPARISON: None available. FINDINGS: SUPPORT DEVICES: None. HEART / MEDIASTINUM: No significant abnormality. LUNGS / PLEURA: No significant pulmonary or pleural abnormality. No pneumothorax. ADDITIONAL FINDINGS: No significant additional findings. IMPRESSION: 1. No acute findings. Signer Name: Farhan Diaz DO Signed: 04/21/2021 9:59 PM Workstation Name: [id number]
[2021-04-21 22:18] LABS: Alanine Aminotransferase 56 units/L (7-56); Albumin 3.9 g/dL (3.9-5); Blood Urea Nitrogen 6 mg/dL (9-20); Calcium 8.2 mg/dL (8.4-10.2); Hemolysis Index 84
[2021-04-21 22:23] LABS: BUN/Creatinine Ratio 12
[2021-04-22] MEDS: ONDANSETRON 4 MG/2 ML INJ IV ONE ×2 (01:38→14:28)
[2021-04-22] MEDS: PANTOPRAZOLE 40 MG INJ IV ONE ×2 (01:38→14:28)
[2021-04-22 01:53] LABS: Mucus,Urine FEW /HPF; Sperm,Urine 1+ /HPF (NP)
[2021-04-22 01:56] LABS: Color,Urine Yellow (Yellow)
[2021-04-22 01:57] LABS: Bilirubin,Urine Negative (Negative); Blood,Urine Trace (Negative); Urobilinogen,Urine < 2.0 mg/dL (<2.0)
--- NOTE | 2021-04-22 06:43 | Emergency Department Report ---
ED General Adult HPI - General Chief complaint: Chest Pain Stated complaint: CHEST & ABD PAIN PUI?: No Source: patient Mode of arrival: Ambulatory Limitations: No Limitations - History of Present Illness Initial comments: This 40-year-old male who states he has a history of chronic alcohol usage. Presents to the emergency department for evaluation of epigastric and left upper quadrant abdominal pain. The patient states that yesterday he vomited some blood. The patient stated that he vomits every morning. He denies any significant change in his stool. The patient states he has a history of ulcer disease but denies a history of pancreatitis. At this time he denies any fever chills. - Related Data Previous Rx's Medication Instructions Recorded Last Taken Type Multivitamin Tab [Multiple Vitamin 1 each PO DAILY 30 Days #30 tablet 04/23/21 Unknown Rx TAB (Theragran)] Pantoprazole [Protonix TAB] 40 mg PO QDAC 30 Days #30 tablet 04/23/21 Unknown Rx Allergies Allergy/AdvReac Type Severity Reaction Status Date / Time No Known Allergies Allergy Verified 10/27/16 22:50 ED Review of Systems ROS: Stated complaint: CHEST & ABD PAIN Other details as noted in HPI Comment: All other systems reviewed and negative Constitutional: denies: chills, fever Eyes: denies: eye pain, eye discharge, vision change ENT: denies: ear pain, throat pain Respiratory: denies: cough, shortness of breath, wheezing Cardiovascular: denies: chest pain, palpitations Endocrine: no symptoms reported Gastrointestinal: abdominal pain, nausea, vomiting, diarrhea Genitourinary: denies: urgency, dysuria Musculoskeletal: denies: back pain, joint swelling, arthralgia Skin: denies: rash, lesions Neurological: denies: headache, weakness, paresthesias Psychiatric: denies: anxiety, depression Hematological/Lymphatic: denies: easy bleeding, easy bruising ED Past Medical Hx - Past Medical History Additional medical history: ulcer disease - Social History Smoking Status: Current Every Day Smoker Substance Use Type: Alcohol - Medications Home Medications: Home Medications Medication Instructions Recorded Confirmed Last Taken Type Multivitamin Tab [Multiple Vitamin 1 each PO DAILY 30 Days #30 tablet 04/23/21 Unknown Rx TAB (Theragran)] Pantoprazole [Protonix TAB] 40 mg PO QDAC 30 Days #30 tablet 04/23/21 Unknown Rx ED Physical Exam - General Limitations: No Limitations General appearance: alert - Head Head exam: Present: atraumatic - Eye Eye exam: Present: normal appearance - ENT ENT exam: Present: mucous membranes moist - Neck Neck exam: Present: normal inspection - Respiratory Respiratory exam: Present: normal lung sounds bilaterally. Absent: respiratory distress - Cardiovascular Cardiovascular Exam: Present: regular rate, normal rhythm. Absent: systolic murmur, diastolic murmur, rubs, gallop - GI/Abdominal GI/Abdominal exam: Present: soft, tenderness (Localized to the epigastric and left upper quadrant area. There is no tenderness McBurney's point or the right upper quadrant), normal bowel sounds. Absent: guarding, rebound, mass, bruit - Rectal Rectal exam: Present: normal rectal tone, normal prostate. Absent: black stool, hemorrhoids - exam: Present: normal inspection - Extremities Exam Extremities exam: Present: normal inspection - Neurological Exam Neurological exam: Present: alert, oriented X3 - Psychiatric Psychiatric exam: Present: normal affect, normal mood - Skin Skin exam: Present: warm, dry, intact, normal color. Absent: rash ED Course Vital Signs 04/21/21 04/21/21 04/22/21 21:15 21:29 01:36 Temperature 98.9 F Pulse Rate 120 H Respiratory Rate Blood Pressure 128/95 O2 Sat by Pulse 96 100 Oximetry 04/22/21 04/22/21 04/22/21 09:27 09:29 09:30 Temperature 98.9 F Pulse Rate 138 H 112 H 109 H Respiratory 18 19 Rate Blood Pressure 136/89 136/89 O2 Sat by Pulse 99 96 Oximetry 04/22/21 04/22/21 04/22/21 09:46 10:00 10:16 Temperature Pulse Rate 114 H 107 H 107 H Respiratory 21 20 19 Rate Blood Pressure 138/95 137/96 136/103 O2 Sat by Pulse 97 96 97 Oximetry 04/22/21 04/22/21 04/22/21 10:30 10:40 10:50 Temperature Pulse Rate 113 H 115 H 118 H Respiratory 16 21 23 Rate Blood Pressure 136/90 146/95 146/95 O2 Sat by Pulse 97 95 96 Oximetry ED Medical Decision Making - Lab Data Result diagrams: 04/23/21 05:32 04/23/21 05:32 - Radiology Data Radiology results: report reviewed - Medical Decision Making The patient's labs were reviewed and was noted that he had a normal white count. However his liver function studies were elevated as well as his lipase. The initial consideration was that this patient was suffering from alcoholic gastritis. However in light of the abnormal liver studies with elevation of the lipase was felt that this patient may have gallstones resulting in mild pancreatitis. The hospitalist was consulted for the patient to be potentially admitted Critical care attestation.: If time is entered above; I have spent that time in minutes in the direct care of this critically ill patient, excluding procedure time. ED Disposition Clinical Impression: Abdominal pain Qualifiers: Abdominal location: epigastric Qualified Code(s): R10.13 - Epigastric pain Cholelithiasis Qualifiers: Cholelithiasis location: gallbladder Cholecystitis presence: without cholecystitis Disposition: 09 ADMITTED INPATIENT Is pt being admited?: Yes Condition: Stable
--- NOTE | 2021-04-22 07:56 | Ultrasound Report ---
LIMITED RUQ ABDOMINAL ULTRASOUND INDICATION: Elevated lipase with an elevation of alkaline phos. COMPARISON: CT abdomen/pelvis from 12/10/2018. FINDINGS: Pancreas: Visualized portions show no significant abnormality. Abdominal Aorta: Normal size. IVC: No significant abnormality. Liver: The liver measures 18.2 cm in length. Diffusely echogenic. Normal hepatopedal blood flow in t he main portal vein. Gallbladder: Single layering gallstone measuring 1.2 cm with no gallbladder wall thickening or perich olecystic fluid. Bile ducts: No significant abnormality. Common bile duct measures 5 mm. Right kidney: Rounded hyperechoic structure in the midpole region measuring 2.1 cm in maximal dimensi on with no clear internal blood flow. Free fluid: None. Additional Findings: None. IMPRESSION: 1. Hepatomegaly with diffusely echogenic liver, most commonly seen with steatosis. 2. Cholelithiasis with no inflammatory change. 3. Indeterminate hyperechoic structure in the midpole the right kidney, not seen on the previous exam . One consideration would be an angiomyolipoma or a prominent renal pyramid. Consider follow-up CT ur ogram for further evaluation. Signer Name: James Kumar MD Signed: 04/22/2021 7:52 AM Workstation Name: [id number]
--- NOTE | 2021-04-22 08:38 | History and Physical Report ---
History of Present Illness Date of examination: 04/22/21 Date of admission: 04/22/21 Chief complaint: Abdominal pain epigastric with vomiting blood History of present illness: Patient is a 40-year-old male with history of chronic alcohol use last use last night. Who presents to the ED with complaints of epigastric and left upper quadrant pain which he rates as 10/10 in intensity although not improved with 6/10 in intensity. He reports that he vomited some blood yesterday. He reports recurrent emesis every morning for the past few weeks. While he admits to ut story of ulcer disease he denies any history of pancreatitis. He denied any fever or chills or diarrhea. When asked why he continues to drink alcohol despite multiple counseling to quit alcohol use he says that he is not sure. He is visibly tremulous during my examination. In the ER he was noted to have a mildly elevated transaminases and bilirubin. Hemoglobin remained stable at 14 with no elevated white count. Past History Past Medical History: other (PUD, alcoholism) Past Surgical History: No surgical history Social history: smoking, alcohol abuse, full code Family history: no significant family history Medications and Allergies Allergies Allergy/AdvReac Type Severity Reaction Status Date / Time No Known Allergies Allergy Verified 10/27/16 22:50 Home Medications Medication Instructions Recorded Confirmed Last Taken Type Ibuprofen [Motrin 600 MG tab] 600 mg PO Q8H PRN #30 tablet 10/20/16 Unknown Rx levoFLOXacin [Levaquin TAB] 750 mg PO QDAY #7 tablet 10/20/16 Unknown Rx Omeprazole Magnesium [PriLOSEC Otc] 20 mg PO QDAY #14 tablet. 10/28/16 Unknown Rx traMADoL [Ultram 50 MG tab] 50 mg PO Q6HR PRN #15 tablet 10/28/16 Unknown Rx Ondansetron [Zofran Odt] 4 mg PO Q8HR PRN #15 tab.rapdis 12/10/18 Unknown Rx Review of Systems All systems: negative Constitutional: chills, no weight loss, no weight gain, no fever, no anorexia, no fatigue, no weakness, no malaise, no lethargy Cardiovascular: no chest pain, no orthopnea, no palpitations Respiratory: no cough, no cough with sputum, no excessive sputum, no hemoptysis Gastrointestinal: abdominal pain, nausea, vomiting, hematemesis, no diarrhea, no constipation, no change in bowel habits, no coffee ground emesis, no BRBPR, no melena, no hematochezia, no loss of appetite, no early satiety, no heartburn Musculoskeletal: no neck stiffness, no neck pain, no shooting arm pain, no arm numbness/tingling, no low back pain, no shooting leg pain, no leg numbness/tingling Integumentary: no rash, no pruritis, no redness, no sores, no wounds, no jaundice Neurological: no transient paralysis, no paralysis, no weakness, no parathesias, no numbness, no tingling Psychiatric: anxiety, no memory loss, no change in sleep habits, no sleep disturbances, no insomnia, no hypersomnia, no change in appetite, no change in libido, no suicidal ideation Endocrine: no cold intolerance, no heat intolerance, no polyphagia Exam - Physical Exam Narrative exam: VITAL SIGNS: Reviewed. GENERAL: The patient appears normally developed, ill appearing, tremolus Vital signs as documented. HEAD: No signs of head trauma. EYES: Pupils are equal. Extraocular motions intact. No sclera icterus EARS: Hearing grossly intact. MOUTH: Oropharynx is normal. NECK: No adenopathy, no JVD. CHEST: Chest with clear breath sounds bilaterally. No wheezes, rales, or rhonchi. CARDIAC: Regular rate and rhythm. S1 and S2, without murmurs, gallops, or rubs. VASCULAR: No Edema. Peripheral pulses normal and equal in all extremities. ABDOMEN: Tender, epigastric region, Soft, non distended. No rebound or guarding, and no masses palpated. Bowel Sounds normal. MUSCULOSKELETAL: Good range of motion of all major joints. Extremities without clubbing, cyanosis or edema. NEUROLOGIC EXAM: Alert and oriented x 3 No focal sensory or strength deficits. Speech normal. Follows commands. PSYCHIATRIC: Mood normal. SKIN: detail exam as documented in skin assessment - Constitutional Vitals: Temp Pulse Resp BP Pulse Ox 98.9 F 120 H 128/95 100 04/21/21 21:29 04/21/21 21:15 04/21/21 21:15 04/22/21 01:36 HEART Score - HEART Score Troponin: Troponin T < 0.010 ng/mL (0.00-0.029) 04/22/21 03:41 Results - Labs CBC & Chem 7: 04/21/21 21:45 04/21/21 21:45 Labs: Laboratory Last Values WBC 8.6 K/mm3 (4.5-11.0) 04/21/21 21:45 RBC 4.33 M/mm3 (3.65-5.03) 04/21/21 21:45 Hgb 14.5 gm/dl (11.8-15.2) 04/21/21 21:45 Hct 42.7 % (35.5-45.6) 04/21/21 21:45 MCV 99 fl (84-94) H 04/21/21 21:45 MCH 34 pg (28-32) H 04/21/21 21:45 MCHC 34 % (32-34) 04/21/21 21:45 RDW 14.1 % (13.2-15.2) 04/21/21 21:45 Plt Count 167 K/mm3 (140-440) 04/21/21 21:45 Lymph % (Auto) 24.6 % (13.4-35.0) 04/21/21 21:45 [place] % (Auto) 10.8 % (0.0-7.3) H 04/21/21 21:45 Eos % (Auto) 1.5 % (0.0-4.3) 04/21/21 21:45 Baso % (Auto) 1.2 % (0.0-1.8) 04/21/21 21:45 Lymph # (Auto) 2.1 K/mm3 (1.2-5.4) 04/21/21 21:45 [place] # (Auto) 0.9 K/mm3 (0.0-0.8) H 04/21/21 21:45 Eos # (Auto) 0.1 K/mm3 (0.0-0.4) 04/21/21 21:45 Baso # (Auto) 0.1 K/mm3 (0.0-0.1) 04/21/21 21:45 Seg Neutrophils % 61.9 % (40.0-70.0) 04/21/21 21:45 Seg Neutrophils # 5.3 K/mm3 (1.8-7.7) 04/21/21 21:45 Sodium 130 mmol/L (137-145) L 04/21/21 21:45 Potassium 4.3 mmol/L (3.6-5.0) 04/21/21 21:45 Chloride 91.1 mmol/L (98-107) L 04/21/21 21:45 Carbon Dioxide 20 mmol/L (22-30) L 04/21/21 21:45 Anion Gap 23 mmol/L 04/21/21 21:45 BUN 6 mg/dL (9-20) L 04/21/21 21:45 Creatinine 0.5 mg/dL (0.8-1.3) L 04/21/21 21:45 Estimated GFR > 60 ml/min 04/21/21 21:45 BUN/Creatinine Ratio 12 % 04/21/21 21:45 Glucose 89 mg/dL (75-100) 04/21/21 21:45 Calcium 8.2 mg/dL (8.4-10.2) L 04/21/21 21:45 Total Bilirubin 1.40 mg/dL (0.1-1.2) H 04/21/21 21:45 AST 139 units/L (5-40) H 04/21/21 21:45 ALT 56 units/L (7-56) 04/21/21 21:45 Alkaline Phosphatase 425 units/L (35-129) H 04/21/21 21:45 Troponin T < 0.010 ng/mL (0.00-0.029) 04/22/21 03:41 Total Protein 8.8 g/dL (6.3-8.2) H 04/21/21 21:45 Albumin 3.9 g/dL (3.9-5) 04/21/21 21:45 Albumin/Globulin Ratio 0.8 % 04/21/21 21:45 Lipase 69 units/L (13-60) H 04/22/21 00:25 Urine Color Yellow (Yellow) 04/22/21 01:41 Urine Turbidity Clear (Clear) 04/22/21 01:41 Urine pH 5.0 (5.0-7.0) 04/22/21 01:41 Ur Specific [place] 1.025 (1.003-1.030) 04/22/21 01:41 Urine Protein 30 mg/dl mg/dL (Negative) 04/22/21 01:41 Urine Glucose (UA) Negative mg/dL (Negative) 04/22/21 01:41 Urine Ketones Negative mg/dL (Negative) 04/22/21 01:41 Urine Blood Trace (Negative) 04/22/21 01:41 Urine Nitrite Negative (Negative) 04/22/21 01:41 Ur Reducing Substances Not Reportable 04/22/21 01:41 Urine Bilirubin Negative (Negative) 04/22/21 01:41 Urine Ictotest Not Reportable 04/22/21 01:41 Urine Urobilinogen < 2.0 mg/dL (<2.0) 04/22/21 01:41 Ur Leukocyte Esterase Negative (Negative) 04/22/21 01:41 Urine WBC (Auto) 3.0 /HPF (0.0-6.0) 04/22/21 01:41 Urine RBC (Auto) 2.0 /HPF (0.0-6.0) 04/22/21 01:41 Urine Mucus Few /HPF 04/22/21 01:41 Urine Sperm 1+ /HPF (WEDGER MACHINE) 04/22/21 01:41 Microbiology: Microbiology 04/22/21 Unknown Stool Stool Occult Blood (ALDO) - Final Assessment and Plan Assessment and plan: Patient is a 40-year-old male with history of chronic alcohol use last use last night. Who presents to the ED with complaints of epigastric and left upper quadrant pain which he rates as 10/10 in intensity although not improved with 6/10 in intensity. He reports that he vomited some blood yesterday. He reports recurrent emesis every morning for the past few weeks. He reports that his pain gets better with food. While he admits to history of ulcer disease he denies any history of pancreatitis. He denied any fever or chills or diarrhea. When asked why he continues to drink alcohol despite multiple counseling to quit alcohol use he says that he is not sure. He is visibly tremulous during my examination. In the ER he was noted to have a mildly elevated transaminases and bilirubin. Hemoglobin remained stable at 14 with no elevated white count. Chest x-ray shows no acute pathology Ultrasound of the abdomen: IMPRESSION: 1. Hepatomegaly with diffusely echogenic liver, most commonly seen with steatosis. 2. Cholelithiasis with no inflammatory change. 3. Indeterminate hyperechoic structure in the midpole the right kidney, not seen on the previous exam. One consideration would be an angiomyolipoma or a prominent renal pyramid. Consider follow-up CT urogram for further evaluation. Assessment Abdominal pain likely alcoholic pancreatitis PUD Hepatomegaly Cholelithiasis appears to be chronic as seen in previous imaging studies Indeterminate hypoechoic structure in the midpole of the right kidney patient to follow-up outpatient with patients transporter Alcohol withdrawal symptoms with no evidence of DTs at this time. EtOH abuse Nicotine abuse Plan Admit to [facility] GI consult for evaluation of hematemesis likely PUD in a patient with known history of the same Surgical consult discussed with surgeon Start on CIWA protocol Banana bag Pain control in addition to with stool softeners for prophylaxis SCDs Extensive counseling greater than 15 minutes on need to quit tobacco and alcohol use patient verbalized understanding Monitor electrolytes and replace LFTs in a.m. Plan of care discussed in detail with the patient he verbalized understanding we will keep n.p.o. until patient is seen by GI. Advance Directives: Yes Plan of care discussed with patient/family: Yes
[2021-04-22] MEDS ORDERED: 1: FOLIC ACID 1 MG, MULTIPLE VITAMIN INJ, ADULT 10 ML, THIAMINE 100 MG in SODIUM CHLORID IV SCH (09:00)
[2021-04-22] MEDS ORDERED: ONDANSETRON 4 MG/2 ML INJ IV PRN (09:00)
[2021-04-22] MEDS ORDERED: LORazepam 2 MG/ML VIAL IV PRN (09:00)
[2021-04-22] MEDS ORDERED: ACETAMINOPHEN 325 MG TAB PO PRN (09:00)
[2021-04-22] MEDS ORDERED: HALOPERIDOL LACTATE 5 MG/1 ML INJ IV PRN (09:00)
[2021-04-22] MEDS ORDERED: NALOXONE 0.4 MG/1 ML INJ IV PRN (09:00)
[2021-04-22] MEDS ORDERED: ALBUTEROL 2.5 MG/3 ML NEBU IH PRN (09:00)
--- NOTE | 2021-04-22 09:14 | Consultation ---
History of Present Illness Consult date: 04/22/21 Reason for consult: abdominal pain - History of present illness History of present illness: Patient is a 40-year-old male with history of chronic alcohol use last use last night. Who presents to the ED with complaints of epigastric and left upper quadrant pain which he rates as 10/10 in intensity although not improved with 6/10 in intensity. He reports that he vomited some blood yesterday. He reports recurrent emesis every morning for the past few weeks. While he admits to history of ulcer disease he denies any history of pancreatitis. He does have gallstones, but his current pain is not postprandial, it is improved with meals. He denied any fever or chills or diarrhea. When asked why he continues to drink alcohol despite multiple counseling to quit alcohol use he says that he is not sure. He is visibly tremulous during my examination. In the ER he was noted to have a mildly elevated transaminases and bilirubin. Hemoglobin remained stable at 14 with no elevated white count. Past History Past Medical History: other (PUD, alcoholism) Past Surgical History: No surgical history Social history: smoking, alcohol abuse, full code Family history: no significant family history Medications and Allergies Allergies Allergy/AdvReac Type Severity Reaction Status Date / Time No Known Allergies Allergy Verified 10/27/16 22:50 Home Medications Medication Instructions Recorded Confirmed Last Taken Type Ibuprofen [Motrin 600 MG tab] 600 mg PO Q8H PRN #30 tablet 10/20/16 Unknown Rx levoFLOXacin [Levaquin TAB] 750 mg PO QDAY #7 tablet 10/20/16 Unknown Rx Omeprazole Magnesium [PriLOSEC Otc] 20 mg PO QDAY #14 tablet. 10/28/16 Unknown Rx traMADoL [Ultram 50 MG tab] 50 mg PO Q6HR PRN #15 tablet 10/28/16 Unknown Rx Ondansetron [Zofran Odt] 4 mg PO Q8HR PRN #15 tab.dickdis 12/10/18 Unknown Rx Active Meds: Active Medications Acetaminophen (Acetaminophen 325 Mg Tab) 650 mg PO Q4H PRN PRN Reason: Pain MILD(1-3)/Fever >100.5/TSE Albuterol (Albuterol 2.5 Mg/3 Ml Nebu) 2.5 mg IH Q4HRT PRN PRN Reason: Shortness Of Breath Haloperidol Lactate (Haloperidol Lactate 5 Mg/1 Ml Inj) 5 mg IV Q1H PRN PRN Reason: Unrespon. to mult. doses BZD's Thiamine HCl 100 mg/ Folic Acid 1 mg/ Multivitamins/Minerals 10 ml/ Sodium Chloride 1,011.2 mls @ 250 mls/hr IV ONCE ONE Stop: 04/22/21 12:40 Folic Acid 1 mg/ Multivitamins /Minerals 10 ml/ Thiamine HCl 100 mg/ Sodium Chlo ride 1,000 mls @ 125 mls/hr IV .BY DURATION MICA Sodium Chloride (Nacl 0.9% 1000 Ml) 1,000 mls @ 125 mls/hr IV .BY DURATION MICA Lorazepam (Lorazepam 2 Mg/Ml Vial) 2 mg IV Q1H PRN PRN Reason: CIWA-Ar 8-15 Lorazepam (Lorazepam 2 Mg/Ml Vial) 4 mg IV Q1H PRN PRN Reason: CIWA-Ar 16-25 Morphine Sulfate (Morphine 2 Mg/1 Ml Inj) 2 mg IV Q4H PRN PRN Reason: Pain, Moderate (4-6) Naloxone HCl (Naloxone 0.4 Mg/1 Ml Inj) 0.1 mg IV Q2MIN PRN PRN Reason: Res Rate </= 8 or 02 SAT < 92% Ondansetron HCl (Ondansetron 4 Mg/2 Ml Inj) 4 mg IV Q4H PRN PRN Reason: Nausea And Vomiting Pantoprazole Sodium (Pantoprazole 40 Mg Inj) 40 mg IV QDAY MICA Sodium Chloride (Sodium Chloride 0.9% 10 Ml Flush Syringe) 10 ml IV BID MICA Sodium Chloride (Sodium Chloride 0.9% 10 Ml Flush Syringe) 10 ml IV PRN PRN PRN Reason: LINE FLUSH Exam Vital Signs Pulse BP Pulse Ox 120 H 128/95 96 04/21/21 21:15 04/21/21 21:15 04/21/21 21:15 - General physical appearance Positive: well developed, moderate distress - Eyes Positive: PERRL - Neck Positive: no masses, no bruits, trachea midline - Respiratory Positive: normal expansion - Cardiovascular Rhythm: regular - Extremities Extremities: no ischemia - Abdomen Abdomen: Present: soft, tender. Absent: rebound, guarding, rigid, surgical scars Hernia: none - Integumentary no rash - Neurologic Neurologic: alert and oriented to time, place and person, motor strength and sensation are grossly intact, CN II-XII intact Results - Labs 04/21/21 21:45 04/21/21 21:45 Abnormal lab results 04/21/21 04/21/21 04/22/21 Range/Units 21:45 21:45 00:25 MCV 99 H (84-94) fl MCH 34 H (28-32) pg [place] % (Auto) 10.8 H (0.0-7.3) % [place] # (Auto) 0.9 H (0.0-0.8) K/mm3 Sodium 130 L (137-145) mmol/L Chloride 91.1 L (98-107) mmol/L Carbon Dioxide 20 L (22-30) mmol/L BUN 6 L (9-20) mg/dL Creatinine 0.5 L (0.8-1.3) mg/dL Calcium 8.2 L (8.4-10.2) mg/dL Total Bilirubin 1.40 H (0.1-1.2) mg/dL AST 139 H (5-40) units/L Alkaline Phosphatase 425 H (35-129) units/L Total Protein 8.8 H (6.3-8.2) g/dL Lipase 69 H (13-60) units/L Diabetes panel 04/21/21 Range/Units 21:45 Sodium 130 L (137-145) mmol/L Potassium 4.3 (3.6-5.0) mmol/L Chloride 91.1 L (98-107) mmol/L Carbon Dioxide 20 L (22-30) mmol/L BUN 6 L (9-20) mg/dL Creatinine 0.5 L (0.8-1.3) mg/dL Glucose 89 (75-100) mg/dL Calcium 8.2 L (8.4-10.2) mg/dL AST 139 H (5-40) units/L ALT 56 (7-56) units/L Alkaline Phosphatase 425 H (35-129) units/L Total Protein 8.8 H (6.3-8.2) g/dL Albumin 3.9 (3.9-5) g/dL Calcium panel 04/21/21 Range/Units 21:45 Calcium 8.2 L (8.4-10.2) mg/dL Albumin 3.9 (3.9-5) g/dL Pituitary panel 04/21/21 Range/Units 21:45 Sodium 130 L (137-145) mmol/L Potassium 4.3 (3.6-5.0) mmol/L Chloride 91.1 L (98-107) mmol/L Carbon Dioxide 20 L (22-30) mmol/L BUN 6 L (9-20) mg/dL Creatinine 0.5 L (0.8-1.3) mg/dL Glucose 89 (75-100) mg/dL Calcium 8.2 L (8.4-10.2) mg/dL Adrenal panel 04/21/21 Range/Units 21:45 Sodium 130 L (137-145) mmol/L Potassium 4.3 (3.6-5.0) mmol/L Chloride 91.1 L (98-107) mmol/L Carbon Dioxide 20 L (22-30) mmol/L BUN 6 L (9-20) mg/dL Creatinine 0.5 L (0.8-1.3) mg/dL Glucose 89 (75-100) mg/dL Calcium 8.2 L (8.4-10.2) mg/dL Total Bilirubin 1.40 H (0.1-1.2) mg/dL AST 139 H (5-40) units/L ALT 56 (7-56) units/L Alkaline Phosphatase 425 H (35-129) units/L Total Protein 8.8 H (6.3-8.2) g/dL Albumin 3.9 (3.9-5) g/dL Assessment and Plan 40-year-old white male patient with epigastric pain. Current pain is made better with meals. Patient also with significant EtOH abuse. He may be at risk for delirium tremors. There is also reports of hematemesis. His hemoglobin is stable. His ultrasound indicates he has gallstones and with history of pancreatitis he may be having gallstone pancreatitis or EtOH pancreatitis we will continue to follow patient with you.
[2021-04-22] MEDS ORDERED: SODIUM CHLORIDE 0.9% 1000 ML 1,000 ML IV ONE (09:15)
[2021-04-22] MEDS ORDERED: THIAMINE 100 MG, FOLIC ACID 1 MG, MULTIPLE VITAMIN INJ, ADULT 10 ML in SODIUM CHLORIDE ... IV ONE (10:00)
[2021-04-22] MEDS: PANTOPRAZOLE 40 MG INJ IV SCH ×2 (10:32→14:26)
[2021-04-22] MEDS: LORazepam 2 MG/ML VIAL IV PRN ×2 (10:38→14:30)
[2021-04-22] MEDS ORDERED: FOLIC ACID IV SCH (11:00)
[2021-04-22] MEDS ORDERED: NACL IV SCH (11:00)
[2021-04-22] MEDS ORDERED: D5W IV SCH (11:00)
[2021-04-22] MEDS ORDERED: THIAMINE IV SCH (11:00)
[2021-04-22] MEDS: MORPHINE 2 MG/1 ML INJ IV PRN (14:29)
[2021-04-22] MEDS: MULTIVITAMINS ,THERAPEUTIC TAB PO SCH (14:31)
--- NOTE | 2021-04-22 15:39 | Gastroenterology Consultation ---
History of Present Illness - Reason for Consult Consult date: 04/22/21 abdominal pain Requesting physician: THOR WATERS - History of Present Illness This is a 40 yo male with chronic alcohol use admitted overnight with epigastric pain and nausea/vomiting. Patient reports having epigastric pain with intermittent nausea/vomiting x 1 month. Has not seek medical care or tried any medication. Reports daily alcohol use for many years. No prior EGD/colonoscopy. In the ER he was noted to have a mildly elevated transaminases and bilirubin. Hemoglobin remained stable at 14 with no elevated white count. Past History Past Medical History: other (PUD, alcoholism) Past Surgical History: No surgical history Social history: smoking, alcohol abuse, full code Family history: no significant family history Medications and Allergies Allergies Allergy/AdvReac Type Severity Reaction Status Date / Time No Known Allergies Allergy Verified 10/27/16 22:50 Home Medications Medication Instructions Recorded Confirmed Last Taken Type No Known Home Medications [No 04/22/21 04/22/21 Unknown History Reported Home Medications] Active Meds: Active Medications Acetaminophen (Acetaminophen 325 Mg Tab) 650 mg PO Q4H PRN PRN Reason: Pain MILD(1-3)/Fever >100.5/TSE Albuterol (Albuterol 2.5 Mg/3 Ml Nebu) 2.5 mg IH Q4HRT PRN PRN Reason: Shortness Of Breath Haloperidol Lactate (Haloperidol Lactate 5 Mg/1 Ml Inj) 5 mg IV Q1H PRN PRN Reason: Unrespon. to mult. doses BZD's Sodium Chloride (Nacl 0.9% 1000 Ml) 1,000 mls @ 125 mls/hr IV ONCE ONE Stop: 04/22/21 17:14 Last Admin: 04/22/21 14:29 Dose: 125 mls/hr Thiamine HCl 100 mg/ Folic Acid 1 mg/ Dextrose/Sodium Chloride 1,001.2 mls @ 126.4 mls/hr IV Q24H MICA Last Admin: 04/22/21 10:32 Dose: 126.4 mls/hr Lorazepam (Lorazepam 2 Mg/Ml Vial) 2 mg IV Q1H PRN PRN Reason: Dileep 8-15 Last Admin: 04/22/21 14:30 Dose: 2 mg Lorazepam (Lorazepam 2 Mg/Ml Vial) 4 mg IV Q1H PRN PRN Reason: Dileep 16-25 Morphine Sulfate (Morphine 2 Mg/1 Ml Inj) 2 mg IV Q4H PRN PRN Reason: Pain, Moderate (4-6) Last Admin: 04/22/21 14:29 Dose: 2 mg Multivitamins (Multivitamins ,Therapeutic Tab) 1 each PO DAILY [facility] Last Admin: 04/22/21 14:31 Dose: 1 each Naloxone HCl (Naloxone 0.4 Mg/1 Ml Inj) 0.1 mg IV Q2MIN PRN PRN Reason: Res Rate </= 8 or 02 SAT < 92% Ondansetron HCl (Ondansetron 4 Mg/2 Ml Inj) 4 mg IV Q4H PRN PRN Reason: Nausea And Vomiting Last Admin: 04/22/21 14:26 Dose: 4 mg Pantoprazole Sodium (Pantoprazole 40 Mg Inj) 40 mg IV QDAY [facility] Last Admin: 04/22/21 14:26 Dose: 40 mg Sodium Chloride (Sodium Chloride 0.9% 10 Ml Flush Syringe) 10 ml IV BID [facility] Last Admin: 04/22/21 10:32 Dose: 10 ml Sodium Chloride (Sodium Chloride 0.9% 10 Ml Flush Syringe) 10 ml IV PRN PRN PRN Reason: LINE FLUSH Review of Systems - Review of Systems All systems: negative Constitutional: no weight loss, no weight gain, no fever, no chills Ears, Nose, Throat: no decreased hearing Cardiovascular: no chest pain Gastrointestinal: abdominal pain, nausea, vomiting, hematemesis, hematochezia Rectal: bleeding Neurological: no weakness Psychiatric: no anxiety Hematologic/Lymphatic: no easy bruising Allergic/Immunologic: no wheezing Exam - Constitutional Vital Signs: Temp Pulse Resp BP Pulse Ox 100.4 F H 127 H 20 127/89 96 04/22/21 11:06 04/22/21 11:06 04/22/21 11:06 04/22/21 11:06 04/22/21 11:06 General appearance: no acute distress - EENT Eyes: EOM intact ENT: hearing intact - Respiratory Respiratory effort: normal - Cardiovascular Rhythm: regular Heart Sounds: Present: S1 & S2 - Gastrointestinal General gastrointestinal: Present: soft, tender, non-distended - Integumentary Integumentary: Present: clear, warm - Neurologic Neurological: alert and oriented x3 - Psychiatric Psychiatric: appropriate mood/affect - Labs CBC & Chem 7: 0316/22 21:45 04/21/21 21:45 Lab Results: Laboratory Results - last 24 hr 04/21/21 04/21/21 04/22/21 21:45 21:45 00:25 WBC 8.6 RBC 4.33 Hgb 14.5 Hct 42.7 MCV 99 H MCH 34 H MCHC 34 RDW 14.1 Plt Count 167 Lymph % (Auto) 24.6 [place] % (Auto) 10.8 H Eos % (Auto) 1.5 Baso % (Auto) 1.2 Lymph # (Auto) 2.1 [place] # (Auto) 0.9 H Eos # (Auto) 0.1 Baso # (Auto) 0.1 Seg Neutrophils % 61.9 Seg Neutrophils # 5.3 Sodium 130 L Potassium 4.3 Chloride 91.1 L Carbon Dioxide 20 L Anion Gap 23 BUN 6 L Creatinine 0.5 L Estimated GFR > 60 BUN/Creatinine Ratio 12 Glucose 89 Calcium 8.2 L Magnesium Total Bilirubin 1.40 H AST 139 H ALT 56 Alkaline Phosphatase 425 H Troponin T < 0.010 < 0.010 Total Protein 8.8 H Albumin 3.9 Albumin/Globulin Ratio 0.8 Lipase Urine Color Urine Turbidity Urine pH Ur Specific [place] Urine Protein Urine Glucose (UA) Urine Ketones Urine Blood Urine Nitrite Ur Reducing Substances Urine Bilirubin Urine Ictotest Urine Urobilinogen Ur Leukocyte Esterase Urine WBC (Auto) Urine RBC (Auto) Urine Mucus Urine Sperm 04/22/21 04/22/21 04/22/21 00:25 01:41 03:41 WBC RBC Hgb Hct MCV MCH MCHC RDW Plt Count Lymph % (Auto) [place] % (Auto) Eos % (Auto) Baso % (Auto) Lymph # (Auto) [place] # (Auto) Eos # (Auto) Baso # (Auto) Seg Neutrophils % Seg Neutrophils # Sodium Potassium Chloride Carbon Dioxide Anion Gap BUN Creatinine Estimated GFR BUN/Creatinine Ratio Glucose Calcium Magnesium Total Bilirubin AST ALT Alkaline Phosphatase Troponin T < 0.010 Total Protein Albumin Albumin/Globulin Ratio Lipase 69 H Urine Color Yellow Urine Turbidity Clear Urine pH 5.0 Ur Specific [place] 1.025 Urine Protein 30 mg/dl Urine Glucose (UA) Negative Urine Ketones Negative Urine Blood Trace Urine Nitrite Negative Ur Reducing Substances Not Reportable Urine Bilirubin Negative Urine Ictotest Not Reportable Urine Urobilinogen < 2.0 Ur Leukocyte Esterase Negative Urine WBC (Auto) 3.0 Urine RBC (Auto) 2.0 Urine Mucus Few Urine Sperm 1+ 04/22/21 09:32 WBC RBC Hgb Hct MCV MCH MCHC RDW Plt Count Lymph % (Auto) [place] % (Auto) Eos % (Auto) Baso % (Auto) Lymph # (Auto) [place] # (Auto) Eos # (Auto) Baso # (Auto) Seg Neutrophils % Seg Neutrophils # Sodium Potassium Chloride Carbon Dioxide Anion Gap BUN Creatinine Estimated GFR BUN/Creatinine Ratio Glucose Calcium Magnesium 1.90 Total Bilirubin AST ALT Alkaline Phosphatase Troponin T Total Protein Albumin Albumin/Globulin Ratio Lipase Urine Color Urine Turbidity Urine pH Ur Specific [place] Urine Protein Urine Glucose (UA) Urine Ketones Urine Blood Urine Nitrite Ur Reducing Substances Urine Bilirubin Urine Ictotest Urine Urobilinogen Ur Leukocyte Esterase Urine WBC (Auto) Urine RBC (Auto) Urine Mucus Urine Sperm - Imaging Ultrasound: report reviewed Assessment and Plan # Abdominal pain - likely 2/2 alcoholic gastritis, possible PUD vs biliary colic. - lipase at 60s. # Elevated LFTs - AST at 100s with Alk phos 400s. - suspect 2/2 alcohol use. - US with hepatic steatosis and gallstones. Rec -no plans for endoscopy at this time. - ok for diet. - PPI IV. - monitor H/H. - check viral hepatitis panel. - monitor LFTs - recommend CT a/p if persistent pain. - supportive care - Patient Problems (1) Abdominal pain Current Visit: Yes Status: Acute Qualifiers: Abdominal location: epigastric Qualified Code(s): R10.13 - Epigastric pain
[2021-04-23 06:13] LABS: Basophils % (Auto) 0.7 % (0.0-1.8); Eosinophils # (Auto) 0.1 K/mm3 (0.0-0.4); Eosinophils % (Auto) 1.3 % (0.0-4.3); Hematocrit 38.5 % (35.5-45.6); Hemoglobin 12.9 gm/dl (11.8-15.2); Lymphocytes % (Auto) 17.6 % (13.4-35.0); Mean Corpuscular HGB Conc 34 % (32-34); Mean Corpuscular Volume 99 fl (84-94); Monocytes # (Auto) 0.8 K/mm3 (0.0-0.8); Monocytes % (Auto) 13.3 % (0.0-7.3); Platelet Count 129 K/mm3 (140-440); Red Cell Distribution Width 13.5 % (13.2-15.2)
[2021-04-23 06:20] LABS: INR 1.07 (0.87-1.13)
[2021-04-23 06:31] LABS: Alanine Aminotransferase 38 units/L (7-56); Albumin 3.2 g/dL (3.9-5); Blood Urea Nitrogen 6 mg/dL (9-20); Calcium 8.6 mg/dL (8.4-10.2); Hemolysis Index 3
[2021-04-23 06:41] LABS: BUN/Creatinine Ratio 12
[2021-04-23 06:54] LABS: Hepatitis B Surface Antigen Non-Reactive (Negative); Hepatitis C Virus Antibody Non-Reactive (NonReactive)
--- NOTE | 2021-04-23 07:42 | Progress Note ---
Assessment and Plan 40-year-old white male patient with epigastric pain. Current pain is made better with meals. Patient also with significant EtOH abuse. He may be at risk for delirium tremors. There is also reports of hematemesis. His hemoglobin is stable. His ultrasound indicates he has gallstones and with history of pancreatitis he may be having gallstone pancreatitis or EtOH pancreatitis we will continue to follow patient with you. No further abdo pain. Ok to advance diet. Subjective Date of service: 04/23/21 Patient Reports: Positive: no new complaints, feels better Objective Vital Signs - 12hr 04/22/21 04/23/21 04/23/21 23:17 00:06 05:04 Temperature 100.3 F H Pulse Rate 108 H Respiratory 18 Rate Blood Pressure 144/98 O2 Sat by Pulse 98 98 93 Oximetry - Labs 04/23/21 05:32 04/23/21 05:32 Diabetes panel 04/23/21 Range/Units 05:32 Sodium 131 L (137-145) mmol/L Potassium 3.2 L D (3.6-5.0) mmol/L Chloride 93.3 L (98-107) mmol/L Carbon Dioxide 24 (22-30) mmol/L BUN 6 L (9-20) mg/dL Creatinine 0.5 L (0.8-1.3) mg/dL Glucose 118 H (75-100) mg/dL Calcium 8.6 (8.4-10.2) mg/dL AST 77 H (5-40) units/L ALT 38 (7-56) units/L Alkaline Phosphatase 350 H (35-129) units/L Total Protein 7.6 (6.3-8.2) g/dL Albumin 3.2 L (3.9-5) g/dL Calcium panel 04/23/21 Range/Units 05:32 Calcium 8.6 (8.4-10.2) mg/dL Albumin 3.2 L (3.9-5) g/dL Pituitary panel 04/23/21 Range/Units 05:32 Sodium 131 L (137-145) mmol/L Potassium 3.2 L D (3.6-5.0) mmol/L Chloride 93.3 L (98-107) mmol/L Carbon Dioxide 24 (22-30) mmol/L BUN 6 L (9-20) mg/dL Creatinine 0.5 L (0.8-1.3) mg/dL Glucose 118 H (75-100) mg/dL Calcium 8.6 (8.4-10.2) mg/dL Adrenal panel 04/23/21 Range/Units 05:32 Sodium 131 L (137-145) mmol/L Potassium 3.2 L D (3.6-5.0) mmol/L Chloride 93.3 L (98-107) mmol/L Carbon Dioxide 24 (22-30) mmol/L BUN 6 L (9-20) mg/dL Creatinine 0.5 L (0.8-1.3) mg/dL Glucose 118 H (75-100) mg/dL Calcium 8.6 (8.4-10.2) mg/dL Total Bilirubin 2.00 H (0.1-1.2) mg/dL AST 77 H (5-40) units/L ALT 38 (7-56) units/L Alkaline Phosphatase 350 H (35-129) units/L Total Protein 7.6 (6.3-8.2) g/dL Albumin 3.2 L (3.9-5) g/dL
[2021-04-23] MEDS: PANTOPRAZOLE 40 MG INJ IV SCH (09:07)
[2021-04-23] MEDS: MULTIVITAMINS ,THERAPEUTIC TAB PO SCH (09:08)
[2021-04-23] MEDS: MORPHINE 2 MG/1 ML INJ IV PRN (09:09)
[2021-04-23] MEDS: LORazepam 2 MG/ML VIAL IV PRN (09:14)
[2021-04-23] MEDS ORDERED: SODIUM CHLORIDE 0.9% 1000 ML 1,000 ML IV SCH (09:15)
[2021-04-23] MEDS ORDERED: THIAMINE 100 MG, FOLIC ACID 1 MG, MULTIPLE VITAMIN INJ, ADULT 10 ML in SODIUM CHLORIDE ... IV SCH (10:00)
[2021-04-23] MEDS ORDERED: POTASSIUM CHLORIDE ER 20 MEQ TAB PO ONE (12:09)
[2021-04-23 12:41] VITALS: BP 145/101
--- NOTE | 2021-04-23 13:12 | Gastroenterology Progress Note ---
Assessment and Plan # Abdominal pain - likely 2/2 alcoholic gastritis, possible PUD vs biliary colic. - lipase at 60s - pain improving. # Elevated LFTs - AST at 100s with Alk phos 400s. - suspect 2/2 alcohol use. - US with hepatic steatosis and gallstones. - LFTs stable. - viral hep panel negative. Rec -no plans for endoscopy at this time. - switch PPI to PO dosing. - recommend CT a/p if persistent pain. - supportive care - will sign off. please call as needed. - advised on alcohol cessation. - Patient Problems (1) Abdominal pain Current Visit: Yes Status: Acute Qualifiers: Abdominal location: epigastric Qualified Code(s): R10.13 - Epigastric pain Subjective Date of service: 04/23/21 Interval history: Patient feeling better. Tolerated diet. Pain improving. No bleeding symptoms. Objective - Constitutional Vitals: Temp Pulse Resp BP Pulse Ox 99.2 F 123 H 22 145/101 97 04/23/21 11:33 04/23/21 11:33 04/23/21 11:33 04/23/21 11:33 04/23/21 11:33 General appearance: no acute distress - EENT Eyes: EOM intact ENT: hearing intact - Respiratory Respiratory effort: normal - Cardiovascular Rhythm: regular Heart Sounds: Present: S1 & S2 - Extremities Extremities: no ischemia - Gastrointestinal General gastrointestinal: Present: soft, non-tender, non-distended - Integumentary Integumentary: Present: clear, warm - Neurologic Neurological: alert and oriented x3 - Labs CBC & Chem 7: 04/23/21 05:32 04/23/21 05:32 Labs: Laboratory Results - last 24 hr 04/23/21 04/23/21 04/23/21 05:32 05:32 05:32 WBC 5.9 RBC 3.90 Hgb 12.9 Hct 38.5 MCV 99 H MCH 33 H MCHC 34 RDW 13.5 Plt Count 129 L Lymph % (Auto) 17.6 [place] % (Auto) 13.3 H Eos % (Auto) 1.3 Baso % (Auto) 0.7 Lymph # (Auto) 1.0 L [place] # (Auto) 0.8 Eos # (Auto) 0.1 Baso # (Auto) 0.0 Seg Neutrophils % 67.1 Seg Neutrophils # 3.9 PT 15.1 H INR 1.07 Sodium 131 L Potassium 3.2 L D Chloride 93.3 L Carbon Dioxide 24 Anion Gap 17 BUN 6 L Creatinine 0.5 L Estimated GFR > 60 BUN/Creatinine Ratio 12 Glucose 118 H Calcium 8.6 Total Bilirubin 2.00 H AST 77 H ALT 38 Alkaline Phosphatase 350 H Total Protein 7.6 Albumin 3.2 L Albumin/Globulin Ratio 0.7 Hepatitis A IgM Ab Hep Bs Antigen Hep B Core IgM Ab Hepatitis C Antibody 04/23/21 05:32 WBC RBC Hgb Hct MCV MCH MCHC RDW Plt Count Lymph % (Auto) [place] % (Auto) Eos % (Auto) Baso % (Auto) Lymph # (Auto) [place] # (Auto) Eos # (Auto) Baso # (Auto) Seg Neutrophils % Seg Neutrophils # PT INR Sodium Potassium Chloride Carbon Dioxide Anion Gap BUN Creatinine Estimated GFR BUN/Creatinine Ratio Glucose Calcium Total Bilirubin AST ALT Alkaline Phosphatase Total Protein Albumin Albumin/Globulin Ratio Hepatitis A IgM Ab Non-reactive Hep Bs Antigen Non-reactive Hep B Core IgM Ab Non-reactive Hepatitis C Antibody Non-reactive
--- NOTE | 2021-04-23 13:58 | Discharge Summary ---
Providers - Providers Date of Admission: 04/22/21 08:38 Date of discharge: 04/23/21 Attending physician: JOVAN ZUÑIGA MD 04/22/21 08:38 Consult to Physician [CONS] Routine Comment: Consulting Provider: KYLIE ROQUE Physician Instructions: Reason For Exam: abdominal pain? gallstone pancreatitis 04/22/21 08:41 Consult to Dietitian/Nutrition [CONS] Routine Physician Instructions: Reason For Exam: Reason for Consult: Poor oral intake 04/22/21 08:42 Consult to Physician [CONS] Routine Comment: Consulting Provider: KIRTI BRIONES Physician Instructions: Reason For Exam: PUD-Hematemesis Primary care physician: MARIEL BROCK Hospitalization Condition: Stable Exam - Constitutional Vitals: Temp Pulse Resp BP Pulse Ox 99.2 F 123 H 22 145/101 97 04/23/21 11:33 04/23/21 11:33 04/23/21 11:33 04/23/21 11:33 04/23/21 11:33 Plan Care Plan Goals: Please try to cut back on the amount of drinking you are doing. It will only worsen your abdominal pain. Please start taking medications as prescribed to you. Follow up with: MARIEL BROCK MD [Primary Care Provider] - 3-5 Days Prescriptions: Multivitamin Tab [Multiple Vitamin TAB (Theragran)] 1 each PO DAILY 30 Days #30 tablet Pantoprazole [Protonix TAB] 40 mg PO QDAC 30 Days #30 tablet
--- NOTE | 2021-04-23 19:10 | Electrocardiograph Report ---
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
[2021-04-24] MEDS ORDERED: PANTOPRAZOLE 40 MG TAB PO SCH (07:30)
[2021-04-24] MEDS ORDERED: THIAMINE 100 MG TAB PO SCH (10:00)
[2021-04-24] MEDS ORDERED: FOLIC ACID 1 MG TAB PO SCH (10:00)
== END 2021-04-23 16:21 | disposition home or self-care (01) | DRG 392 ==
LOC: EDBD → ED 20:49 → 3A 04-22 08:38
PROVIDERS: ADMIT Internal Medicine; ATTEND Student in an Organized Health Care Education/Training Program
DX: K29.20 Alcoholic gastritis without bleeding (principal); F10.239 Alcohol dependence with withdrawal, unspecified; F19.20 Other psychoactive substance dependence, uncomplicated; K80.20 Calculus of gallbladder without cholecystitis without obstruction; F17.200 Nicotine dependence, unspecified, uncomplicated; Z20.822 Contact with and (suspected) exposure to COVID-19
CPT/HCPCS: 36415; 71046; 76705; 80053; 80074; 81001; 82270; 83690; 83735; 84484; 85025; 85610; 93005; 99406; G0378; J3490; Q0162; C9113; J2060; J2270; J2405; J3411; J7030; J7042

== ENCOUNTER 2021-09-21 09:58 | Emergency (ER) | payer SELFPAY ==
[2021-09-21 15:15] VITALS: BP 145/95
[2021-09-21 15:53] LABS: Basophils # (Auto) 0.1 K/mm3 (0.0-0.1); Basophils % (Auto) 0.9 % (0.0-1.8); Eosinophils # (Auto) 0.2 K/mm3 (0.0-0.4); Eosinophils % (Auto) 1.7 % (0.0-4.3); Hemoglobin 15.1 gm/dl (11.8-15.2); Lymphocytes % (Auto) 21.9 % (13.4-35.0); Mean Corpuscular HGB Conc 34 % (32-34); Mean Corpuscular Volume 99 fl (84-94); Monocytes # (Auto) 0.9 K/mm3 (0.0-0.8); Monocytes % (Auto) 9.7 % (0.0-7.3); Platelet Count 163 K/mm3 (140-440); Red Blood Count 4.57 M/mm3 (3.65-5.03); Red Cell Distribution Width 13.4 % (13.2-15.2)
[2021-09-21 16:11] LABS: Alanine Aminotransferase 42 units/L (7-56); Albumin 4.4 g/dL (3.9-5); Blood Urea Nitrogen 6 mg/dL (9-20); Calcium 9.1 mg/dL (8.4-10.2); Hemolysis Index 3
[2021-09-21 16:31] LABS: BUN/Creatinine Ratio 9
== END 2021-09-22 01:00 | disposition left against medical advice (07) ==
LOC: ED 09:58
DX: R10.9 Unspecified abdominal pain (principal); Z53.21 Procedure and treatment not carried out due to patient leaving prior to being seen by health care provider
CPT/HCPCS: 36415; 80053; 83690; 85025

== ENCOUNTER 2021-09-22 16:02 | Emergency (ER) | payer SELFPAY | END 2021-09-22 19:40 | disposition left against medical advice (07) | LOC: ED 16:02 | DX: R10.9 Unspecified abdominal pain (principal); Z53.21 Procedure and treatment not carried out due to patient leaving prior to being seen by health care provider ==

== ENCOUNTER 2021-09-25 08:52 | Emergency (ER) | payer SELFPAY ==
[2021-09-25 09:28] VITALS: BP 130/116
[2021-09-25 14:27] LABS: Basophils # (Auto) 0.1 K/mm3 (0.0-0.1); Basophils % (Auto) 0.7 % (0.0-1.8); Eosinophils # (Auto) 0.1 K/mm3 (0.0-0.4); Eosinophils % (Auto) 0.5 % (0.0-4.3); Hematocrit 43.7 % (35.5-45.6); Lymphocytes # (Auto) 1.9 K/mm3 (1.2-5.4); Lymphocytes % (Auto) 18.6 % (13.4-35.0); Mean Corpuscular HGB Conc 34 % (32-34); Mean Corpuscular Volume 97 fl (84-94); Monocytes # (Auto) 1.1 K/mm3 (0.0-0.8); Monocytes % (Auto) 10.9 % (0.0-7.3); Platelet Count 167 K/mm3 (140-440); Red Cell Distribution Width 13.4 % (13.2-15.2)
[2021-09-25 14:47] LABS: Alanine Aminotransferase 35 units/L (7-56); Albumin 4.6 g/dL (3.9-5); BUN/Creatinine Ratio 10; Blood Urea Nitrogen 5 mg/dL (9-20); Calcium 9.1 mg/dL (8.4-10.2); Hemolysis Index 129
== END 2021-09-25 21:05 | disposition left against medical advice (07) ==
LOC: ED 08:52
DX: R10.9 Unspecified abdominal pain (principal); Z53.21 Procedure and treatment not carried out due to patient leaving prior to being seen by health care provider
CPT/HCPCS: 36415; 80053; 83690; 85025